=== PATIENT | female | born 1945 | race Caucasian/White ===

== ENCOUNTER 2016-05-14 15:00 | Emergency (ER) | payer OTHER ==
[2016-05-14 14:04] LABS: BASOPHILS 0.5 %; BASOPHILS ABSOLUTE 0.05 10/3/uL (0.0-0.16); EOSINOPHILS 2.3 %; EOSINOPHILS ABSOLUTE 0.22 10/3/uL (0.0-0.53); HEMOGLOBIN 9.8 g/dL (12.0-16.0); IMMATURE GRANULOCYTES 0.6 %; IMMATURE GRANULOCYTES ABSOLUTE 0.06 10/3/uL (0.0-0.11); LYMPHOCYTES 18.1 %; LYMPHOCYTES ABSOLUTE 1.77 10/3/uL (0.67-4.30); MEAN CORPUSCULAR HEMOGLOB 24.8 pg (26.0-34.0); MEAN CORPUSCULAR VOLUME 76.5 fL (80-100); MONOCYTES 7.9 %; MONOCYTES ABSOLUTE 0.77 10/3/uL (0.21-1.20); NEUTROPHILS 70.6 %; NEUTROPHILS ABSOLUTE 6.89 10/3/uL (2.02-8.40); PLATELET COUNT 300 10/3/uL (150-400); RBC DISTRIBUTION WIDTH 16.6 % (12.0-16.0); RED CELL COUNT 3.95 10/6/uL (4.0-5.6); WHITE BLOOD CELLS 9.8 10/3/uL (4.5-10.5)
[2016-05-14 14:05] LABS: HEMATOCRIT 30.2 % (36.0-48.0); MANUAL DIFF NO %; MEAN CORPUS HGB CONC 32.5 g/dL (32.0-36.0)
[2016-05-14 14:13] LABS: INTERNATIONAL NORMAL RATI 2.4 UNITS (-); PROTIME (NOT ORD) 25.6 SEC (12.0-14.5)
[2016-05-14 14:21] LABS: A/G RATIO 0.9 (0.7-1.9); ALBUMIN 3.3 G/DL (3.5-5.0); ALKALINE PHOSPHATASE 102 U/L (45-117); BUN (BLOOD UREA NITROGEN) 26 MG/DL (6-23); CALCIUM, SERUM 8.8 MG/DL (8.5-10.4); CHLORIDE, SERUM 101 MMOL/L (96-112); CO2 (CARBON DIOXIDE) 27 MMOL/L (24-34); CREATININE 1.09 MG/DL (0.55-1.02); GFR AFRICAN AMERICAN 59 ML/MIN (>=60); GFR NON AFRICAN AMERICAN 51 ML/MIN (>=60); GLOBULIN 3.6 G/DL (2.5-4.1); GLUCOSE, SERUM 137 MG/DL (60-99); POTASSIUM, SERUM 4.4 MMOL/L (3.5-5.3); SGOT(AST) 15 U/L (5-40); SGPT(ALT) 13 U/L (5-65); SODIUM, SERUM 137 MMOL/L (135-148); TOTAL BILIRUBIN 0.5 MG/DL (0-1.2); TOTAL PROTEIN 6.9 G/DL (6.0-8.5)
[~2016-05-14 15:00] MED LIST: ALEVE220 MG PO; ASAB PO; BEN25 PO; BP PILL; CARDCD180 PO; CORDARONE PO; COZ50 PO; EZFE 200200 MG PO; FLECAINIDE100 MG PO; GLUCPH PO; GLUCXL2.5 PO; JANTOVEN1 MG PO; KDUR20 PO; L40 PO; LEVOTHYROXIN50 MCG PO; LEVOTHYROXIN75 MCG PO; LIPITOR40 PO; NITROSTAT0.4 MG SL; PROAIR HFA INH; SPIRULINA PO; SPIRULINA500 MG PO; TOPXL25 PO; ULTRAM50 PO; VITC500 PO; ZINC220C PO; ZYRTEC ALLGY10 MG PO
[2016-10-30] MEDS ORDERED: KLOR-CON M2020 MEQ PO (03:42)
[2016-10-30] MEDS ORDERED: SYNTHROID175 MCG PO (03:42)
[2016-10-30] MEDS ORDERED: CARTIA XT180 MG/24 PO (03:42)
[2016-10-30] MEDS ORDERED: LIPITOR40 PO (03:43)
[2016-10-30] MEDS ORDERED: C1 PO (03:44)
[2016-10-30] MEDS ORDERED: ZINC 50MG OTC PO (03:44)
[2016-10-30] MEDS ORDERED: EZFE 200200 MG PO (03:45)
[2016-10-30] MEDS ORDERED: L40 PO (03:46)
[2016-10-30] MEDS ORDERED: GLUCPH PO (03:46)
[2016-10-31] MEDS ORDERED: CORDARONE PO (09:47)
== END 2016-05-14 17:27 | disposition home or self-care (01) ==
LOC: ER 15:00
PROVIDERS: Emergency Medicine
DX: S20.219A Contusion of unspecified front wall of thorax, initial encounter (principal); I10 Essential (primary) hypertension; J45.909 Unspecified asthma, uncomplicated; I48.91 Unspecified atrial fibrillation; E78.5 Hyperlipidemia, unspecified; I25.10 Atherosclerotic heart disease of native coronary artery without angina pectoris; E11.9 Type 2 diabetes mellitus without complications; Z95.5 Presence of coronary angioplasty implant and graft; Z90.710 Acquired absence of both cervix and uterus; Z88.2 Allergy status to sulfonamides; Z91.048 Other nonmedicinal substance allergy status; Z79.84 Long term (current) use of oral hypoglycemic drugs; Z79.82 Long term (current) use of aspirin; Z79.899 Other long term (current) drug therapy; Z79.01 Long term (current) use of anticoagulants
CPT/HCPCS: 71260; 80053; 85025; 85610; 99285; Q9967